=== PATIENT | female | born 1980 | race Two or more races ===

== ENCOUNTER 2017-03-01 10:40 | Emergency (ER) | payer OTHER ==
[~2017-03-01] VITALS: Ht 165.1 cm; Wt 96.2 kg
[~2017-03-01 10:40] MED LIST: IBUPROFEN600 MG ORAL; NKM
[2017-03-01] MEDS ORDERED: Ketorolac 60mg Inj IM ONE (13:30)
--- NOTE | 2017-03-01 13:41 | Diagnostic Imaging Report ---
Indication: PAIN Technique: 3 views right hand Comparison: none Findings: No acute fractures. No dislocations. The joint spaces are preserved. Impression: Negative
--- NOTE | 2017-03-01 13:45 | Diagnostic Imaging Report ---
Clinical Indication:PAIN Technique: 3 views of the right wrist Comparison: None Findings: No acute fractures. No dislocations. Joint spaces are preserved. Impression: Negative
--- NOTE | 2017-03-01 14:02 | Emergency Room Report ---
History of Present Illness General Chief Complaint: Pain Source: Patient Present Illness HPI This patient states that for the past 3 days she has had pain in her right index finger. She states that this started spontaneously. She states that it is very painful to move the base of her finger. She states there is swelling. It also is radiating through the back of her hand and in her right wrist. She denies fevers or chills. She denies trauma or injury. She states that this has occurred several other times in the past but has not lasted this long or has been has severe. She states that it always occurs in the same location. Allergies: Coded Allergies: No Known Allergies (Unverified , 05/28/16) Patient History Past Medical History: none Past Surgical History: none Social History: Denies: alcohol use, drug use, smoking Last Menstrual Period: 02/16/17 Now: No Reviewed Nursing Documentation: PMH: Agreed, PSxH: Agreed Nursing Documentation-PMH Past Medical History: No Stated History Review of Systems All Other Systems: negative except mentioned in HPI Physical Exam Vital Signs Date Time Temp Pulse Resp B/P Pulse Ox O2 Delivery O2 Flow Rate FiO2 03/01/17 11:02 99.0 60 14 112/73 98 Room Air Sp02 EP Interpretation: reviewed, normal General Appearance: no apparent distress, alert, GCS 15, non-toxic Head: normocephalic, atraumatic Eyes: bilateral eye normal inspection ENT: hearing grossly normal, normal pharynx, no angioedema, normal voice Neck: full range of motion Respiratory: no respiratory distress, no retraction, no accessory muscle use, speaking full sentences Rectal: deferred Musculoskeletal: back normal, gait/station normal, swelling - Swelling and pain with range of motion at the right MCP joint of the second digit. There is swelling of the right anterior hand and wrist. There is warmth but no erythema. No bony tenderness. Neurologic: alert, oriented x3, responsive, motor strength/tone normal, sensory intact, speech normal Psychiatric: judgement/insight normal, memory normal, mood/affect normal, no suicidal/homicidal ideation Skin: normal color, no rash, warm/dry, well hydrated Procedures Splinting Splinting : Consent: Verbal Location: R. wrist and hand Pre-Made Type: velcro Splint: wrist Pre-Proc Neuro Vasc Exam: normal Post-Proc Neuro Vasc Exam: normal Patient Tolerated: Well Complications: None Medical Decision Making Diagnostic Impression: Primary Impression: Gout attack Additional Impression: Arthritis of hand ER Course This patient has joint swelling of the MCP joint of the index finger. There is also swelling extending to the through the posterior hand and wrist. This is most consistent with gout or crystal arthritis. I am especially suspicious given the patient has had previous episodes. I have low suspicion for septic joint or septic arthritis given the physical exam findings and lack of systemic symptoms. Therefore, did not synovial fluid via arthrocentesis. Patient was also given a splint for comfort. She is given close return precautions and followup instructions. Last Vital Signs Date Time Temp Pulse Resp B/P Pulse Ox O2 Delivery O2 Flow Rate FiO2 03/01/17 11:02 99.0 60 14 112/73 98 Room Air Status: improved Disposition: HOME, SELF-CARE Condition: Improved Referrals: RAMYA STILESREFERRING (PCP) LIMA BROOKS D.O. Mar 01, 2017 14:02
[2017-03-01] MEDS ORDERED: INDOCIN25 MG ORAL (14:27)
[2017-03-01 14:41] VITALS: BP 110/72
== END 2017-03-01 14:44 | disposition home or self-care (01) ==
LOC: EMR 11:27
DX: M10.9 Gout, unspecified (principal); M19.041 Primary osteoarthritis, right hand
CPT/HCPCS: 29280; 96372; 99284

== ENCOUNTER 2018-07-10 08:53 | Emergency (ER) | payer OTHER ==
[~2018-07-10] VITALS: Ht 165.1 cm; Wt 90.7 kg
[~2018-07-10 08:53] MED LIST changes: +INDOCIN25 MG ORAL
[2018-07-10 09:07] VITALS: BP 119/76
[2018-07-10] MEDS ORDERED: Ketorolac 30mg Inj IV ONE (09:30)
[2018-07-10] MEDS ORDERED: Isovue-300 100ml vial INJ PRN (09:45)
[2018-07-10 09:58] LABS: APPEARANCE,URINE CLEAR; BILIRUBIN, URINE NEGATIVE (NEGATIVE); GLUCOSE, URINE (UA) NEGATIVE (NEGATIVE); KETONES,URINE NEGATIVE (NEGATIVE); LEUKOCYTE ESTERASE ,URINE NEGATIVE (NEGATIVE); NITRITE,URINE NEGATIVE (NEGATIVE); PH,URINE 6 (4.5-8.0); PROTEIN,URINE NEGATIVE (NEGATIVE); UROBILINOGEN,URINE NORMAL MG/DL (0.0-1.0)
[2018-07-10 10:03] LABS: BASOPHILS % (AUTO) 0.2 % (0.0-2.0); EOSINOPHILS % (AUTO) 0.1 % (0.0-3.0); HEMATOCRIT 36.9 % (37.0-47.0); HEMOGLOBIN 12.5 G/DL (12.0-16.0); LYMPHOCYTES % (AUTO) 10.9 % (20.0-45.0); MEAN CORPUSCULAR VOLUME 89 FL (80-99); NEUTROPHILS % (AUTO) 84.8 % (45.0-75.0); PLATELET COUNT 232 K/UL (150-450); RED BLOOD COUNT 4.14 M/UL (4.20-5.40); RED CELL DISTRIBUTION WIDTH 12.2 % (11.6-14.8); WHITE BLOOD COUNT 16.6 K/UL (4.8-10.8)
[2018-07-10 10:07] LABS: ANION GAP 10 mmol/L (5-15); BLOOD UREA NITROGEN 14 mg/dL (7-18); CALCIUM 8.2 MG/DL (8.5-10.1); CARBON DIOXIDE 26 MMOL/L (21-32); CHLORIDE 104 MMOL/L (98-107); COLOR,URINE YELLOW; CREATININE 0.7 MG/DL (0.55-1.30); POTASSIUM 3.8 MMOL/L (3.5-5.1); SODIUM 140 MMOL/L (136-145)
[2018-07-10 10:12] LABS: ALANINE AMINOTRANSFERASE 31 U/L (12-78); ALBUMIN 3.4 G/DL (3.4-5.0); ALBUMIN/GLOBULIN RATIO 0.8 (1.0-2.7); ALKALINE PHOSPHATASE 55 U/L (46-116); ASPARTATE AMINO TRANSFERASE 21 U/L (15-37); BILIRUBIN,TOTAL 0.4 MG/DL (0.2-1.0)
--- NOTE | 2018-07-10 10:47 | Diagnostic Imaging Report ---
Indication: Abdominal pain Technique: Supine view of the abdomen Comparison: none Findings: Unremarkable bowel gas pattern. No gaseous distention of large or small bowel. No unusual masses or calcifications. Impression: No acute process
--- NOTE | 2018-07-10 10:48 | Diagnostic Imaging Report ---
Indication: Shortness of breath Technique: One view of the chest Comparison: none Findings: Patient is rotated to the left. Body habitus somewhat limits evaluation. Lungs and pleural spaces are clear. Heart size is upper limits normal Impression: No acute process
[2018-07-10 11:15] VITALS: BP 108/50
[2018-07-10 13:00] VITALS: BP 110/72
--- NOTE | 2018-07-10 13:52 | Diagnostic Imaging Report ---
Clinical Indication: Right-sided abdominal pain Technique: Patient ingested oral contrast IV administration nonionic contrast. Venous phase spiral acquisition obtained through the abdomen and pelvis. Multiplanar reconstructions were generated. Total dose length product 1056.11 mGycm. CTDIvol(s) 19.28 mGy. Dose reduction achieved using automated exposure control Comparison: 05/28/2016 noncontrast study Findings: There is good quality GI tract opacification. The appendix is normal. There is no evidence of diverticulosis or diverticulitis. Contrast is seen throughout the entirety of the small bowel, and is far distally as the proximal sigmoid. No small bowel distention or small bowel wall thickening is demonstrated. The distal esophagus, stomach, duodenum are unremarkable. No free or loculated intraperitoneal gas or fluid is evident. The liver demonstrates several small subcentimeter low-attenuation lesions which are too small to characterize. Some of these were evident on the previous noncontrast study The gallbladder, bile ducts, pancreas, spleen, adrenals, right kidney are unremarkable. Left kidney demonstrates a 12 mm diameter upper pole cyst. No renal or ureteral calculi, hydronephrosis, or hydroureter. No pelvic mass or adenopathy. What appears to be a single surgical staple is seen in the anterior pelvic wall subcutaneous fat. Nodular and calcified opacities within the anterior pelvic wall likely relate related to prior surgery or injections. When compared to the prior exam, allowing for technical differences, no significant interim change. The bones are unremarkable. There are bilateral breast implants again demonstrated. Impression: No acute abnormality demonstrated Subcentimeter low-attenuation liver lesions, too small to characterize, most likely benign simple cysts or bile hamartomas. No further follow-up necessary Other findings as noted, including evidence of prior pelvic wall surgery, bilateral breast implants, stable left renal cyst The CT scanner at [facility] is accredited by the [employer] and the scans are performed using protocols designed to limit radiation exposure to as low as reasonably achievable to attain images of sufficient resolution adequate for diagnostic evaluation.
--- NOTE | 2018-07-10 15:03 | Emergency Room Report ---
History of Present Illness General Chief Complaint: Abdominal Pain Source: Patient Present Illness HPI Patient presents with right lower quadrant pain that began at midnight. It started suddenly and has improved. She has this pain intermittently. She had a CT scan in 2016 that was normal. She had sweats and felt feverish last night. She denies any vomiting or change in bowel habits. There's no dysuria and no discharge. She does not take any medication for this pain. The pain is sharp and pressure and radiates somewhat to the right lower quadrant and groin. Pain rated 10/10. It is constant. She was evaluated in 2016 for similar pain. She has been told the pain is caused by "gas". CT at that time: IMPRESSION: Limited exam due to lack of intravenous and oral contrast. Mild left lower quadrant fat stranding adjacent to the left ovary, small bowel and colon with no obvious bowel wall thickening, so source indeterminate. Remainder the examination shows no acute abnormalities. Contracted gallbladder. LNMP = 06/27. Prior tummy tuck. No chest pain, URI sy, dyspnea, cough, extremity pain, headache. No unusual foods, travel or ill contacts. H/O gout. Allergies: Coded Allergies: No Known Allergies (Unverified , 05/28/16) Patient History Past Medical History: see triage record Past Surgical History: other - tummy tuck and breast augmentation Social History: Denies: smoking Social History Narrative - house keeper Last Menstrual Period: 06/27/18 Now: No Reviewed Nursing Documentation: PMH: Agreed; PSxH: Agreed Nursing Documentation-PMH Past Medical History: No Stated History Review of Systems All Other Systems: negative except mentioned in HPI Physical Exam Vital Signs Date Time Temp Pulse Resp B/P (MAP) Pulse Ox O2 Delivery O2 Flow Rate FiO2 07/10/18 08:57 98.6 95 18 119/76 94 Room Air 98.6 Sp02 EP Interpretation: reviewed, normal General Appearance: well appearing, no apparent distress, GCS 15 Head: normocephalic Eyes: bilateral eye normal inspection, bilateral eye PERRL ENT: moist mucus membranes Neck: supple Respiratory: lungs clear, normal breath sounds Cardiovascular #1: regular rate, rhythm Cardiovascular #2: 2+ radial (R) Gastrointestinal: normal inspection, normal bowel sounds, no mass, non- distended, no rebound, tenderness - suprapubic and RLQ Genitourinary: no CVA tenderness Musculoskeletal: back normal, gait/station normal, normal range of motion Neurologic: alert, oriented x3, grossly normal Psychiatric: mood/affect normal Skin: normal inspection, warm/dry, other - post abd surgery Medical Decision Making Diagnostic Impression: Primary Impression: Abdominal pain Qualified Codes: R10.30 - Lower abdominal pain, unspecified ER Course Patient with 2 days of abdominal pain which is now severe. DDx: appendicitis, pyelonephritis, diverticulitis, ovarian cyst, UTI, renal stone, ectopic amongst others. Due to severity of pain, evaluation with CT abd/pelvis, labs. Treatment with IV hydration and analgesia. Not surgical exam at this time. Needs repeat evaluations. She is afebrile and not toxic. Labs with elevated WBC, sl low H/H. CMP and lipase normal. UA clear. CT abdomen - no surgical pathology or renal pathology. Patient improved, but still with tenderness - bilaterally lower abdomen with rebound. Patient evaluated by Dr. Rahman. Initially we considered observing the patient in the hospital. Patient wants to be observed at home and is feeling better at this time. She needs to follow-up with her own doctor. Patient stable for outpatient observation and treatment and advised to return if the pain worsens. As prior CT showed some stranding by ovary, consider ovarian pathology and U/S if returns. Labs Test 07/10/18 09:00 White Blood Count 16.6 K/UL (4.8-10.8) Red Blood Count 4.14 M/UL (4.20-5.40) Hemoglobin 12.5 G/DL (12.0-16.0) Hematocrit 36.9 % (37.0-47.0) Mean Corpuscular Volume 89 FL (80-99) Mean Corpuscular Hemoglobin 30.1 PG (27.0-31.0) Mean Corpuscular Hemoglobin Concent 33.8 G/DL (32.0-36.0) Red Cell Distribution Width 12.2 % (11.6-14.8) Platelet Count 232 K/UL (150-450) Mean Platelet Volume 7.9 FL (6.5-10.1) Neutrophils (%) (Auto) 84.8 % (45.0-75.0) Lymphocytes (%) (Auto) 10.9 % (20.0-45.0) Monocytes (%) (Auto) 4.0 % (1.0-10.0) Eosinophils (%) (Auto) 0.1 % (0.0-3.0) Basophils (%) (Auto) 0.2 % (0.0-2.0) Prothrombin Time 10.5 SEC (9.30-11.50) Prothromb Time International Ratio 1.0 (0.9-1.1) Activated Partial Thromboplast Time 26 SEC (23-33) Urine Color Yellow Urine Appearance Clear Urine pH 6 (4.5-8.0) Urine Specific [place] 1.010 (1.005-1.035) Urine Protein Negative (NEGATIVE) Urine Glucose (UA) Negative (NEGATIVE) Urine Ketones Negative (NEGATIVE) Urine Occult Blood 4+ (NEGATIVE) Urine Nitrite Negative (NEGATIVE) Urine Bilirubin Negative (NEGATIVE) Urine Urobilinogen Normal MG/DL (0.0-1.0) Urine Leukocyte Esterase Negative (NEGATIVE) Urine RBC 2-4 /HPF (0 - 2) Urine WBC 0-2 /HPF (0 - 2) Urine Squamous Epithelial Cells Occasional /LPF Urine Bacteria Occasional /HPF (NONE) Urine Mucus Occasional /LPF Urine HCG, Qualitative Negative (NEGATIVE) Sodium Level 140 MMOL/L (136-145) Potassium Level 3.8 MMOL/L (3.5-5.1) Chloride Level 104 MMOL/L (98-107) Carbon Dioxide Level 26 MMOL/L (21-32) Anion Gap 10 mmol/L (5-15) Blood Urea Nitrogen 14 mg/dL (7-18) Creatinine 0.7 MG/DL (0.55-1.30) Estimat Glomerular Filtration Rate > 60 mL/min (>60) Glucose Level 105 MG/DL (74-106) Calcium Level 8.2 MG/DL (8.5-10.1) Total Bilirubin 0.4 MG/DL (0.2-1.0) Aspartate Amino Transf (AST/SGOT) 21 U/L (15-37) Alanine Aminotransferase (ALT/SGPT) 31 U/L (12-78) Alkaline Phosphatase 55 U/L (46-116) Total Protein 7.5 G/DL (6.4-8.2) Albumin 3.4 G/DL (3.4-5.0) Globulin 4.1 g/dL Albumin/Globulin Ratio 0.8 (1.0-2.7) Lipase 67 U/L (73-393) Chest X-Ray Diagnostic Results Chest X-Ray Diagnostic Results : Chest X-Ray Ordered: Yes # of Views/Limited/Complete: 1 View Indication: Other EP Interpretation: Yes Interpretation: no consolidation, no effusion, no pneumothorax, other - augmentation Other X-Ray Diagnostic Results Other X-Ray Diagnostic Results : X-Ray ordered: abd # of Views/Limited Vs Complete: 1 View Indication: Pain Interpretation: nonspecific bowel gas, no sbo, other - prior surgery CT/MRI/US Diagnostic Results CT/MRI/US Diagnostic Results : Imaging Test Ordered: abd/pelvis Impression Impression: No acute abnormality demonstrated Subcentimeter low-attenuation liver lesions, too small to characterize, most likely benign simple cysts or bile hamartomas. No further follow-up necessary Other findings as noted, including evidence of prior pelvic wall surgery, bilateral breast implants, stable left renal cyst Last Vital Signs Date Time Temp Pulse Resp B/P (MAP) Pulse Ox O2 Delivery O2 Flow Rate FiO2 07/10/18 15:10 73 15 115/78 99 Room Air 07/10/18 15:10 98.0 97.5 Status: improved Disposition: HOME, SELF-CARE Condition: Improved Scripts Ondansetron Odt* (ZOFRAN ODT*) 4 Mg Tab.rapdis 4 MG BC EVERY 8 HOURS, #4 TAB 0 Refills Prov: Maged Up M.D. 07/10/18 Hydrocodone Bit/Acetaminophen 5-325* (NORCO 5-325*) 1 Each Tablet 1 TAB ORAL Q6H PRN for For Pain, #10 TAB 0 Refills Prov: Maged Up M.D. 07/10/18 Referrals: RAMYA STILES,REFERRING (PCP) Maged Up M.D. Jul 10, 2018 15:03
[2018-07-10] MEDS ORDERED: NORCO 5-325 TA1 EACH ORAL (15:05)
[2018-07-10] MEDS ORDERED: ONDANSETRON ODT4 MG BC (15:05)
[2018-07-10 15:10] VITALS: BP 115/78
== END 2018-07-10 15:10 | disposition home or self-care (01) ==
LOC: EMR 09:23
DX: R10.30 Lower abdominal pain, unspecified (principal); R06.02 Shortness of breath
CPT/HCPCS: 36415; 71045; 74018; 74177; 80053; 81003; 81025; 83690; 85025; 85610; 85730; 96361; 96374; 99284; J1885; Q9967